=== PATIENT | female | born 1950 | race Caucasian/White ===

== ENCOUNTER 2017-06-15 08:08 | Day surgery (SDC) | payer MEDICARE, OTHER ==
[2017-06-12 13:44] VITALS: BMI 23.6
--- NOTE | 2017-06-15 08:19 | HP ---
HISTORY OF PRESENT ILLNESS: Ms. Winter is a very pleasant 66-year-old woman presenting for right hip pain that radiated down her right lower extremity just past the knee in the L4-L5 fashion. She has seen her orthopedist, who evaluated her hip and does not feel it is the problem. She has an MRI and flexion, extension views from the [facility] reveal an unstable grade I slip at L4-L5 with ass ociated large central disk herniation, posterior synovial cyst, and facet hypertrophy resulting in se inés foraminal and central canal stenosis. I feel that this fits well with her symptom presentation. She has had one injection with Dr. Morales, but does not feel and is here for surgical disc ussion. PAST MEDICAL HISTORY: Seasonal allergies, anemia, asthma, arthritis, both osteoarthritis, and rheuma toid. CURRENT MEDICATIONS: Include Leflunomide, prednisone, Celebrex, and colchicine. ALLERGIES: No known drug allergies. PHYSICAL EXAMINATION: Patient is alert and oriented x3. Gait is severely antalgic. She does have a boot on for previous foot surgery that was done recently. ASSESSMENT: Lumbar radiculopathy and spinal stenosis. PLAN: Dr. Walters met with the patient, reviewed imaging, and advocated for an L4-L5 fusion. He expla ined to the patient the risks, benefits, and alternatives to the procedure. The patient expressed un derstanding and would like to move forward with surgery as discussed. I do believe, the patient is m entally competent and capable of making medical decisions for herself. We will move forward with citlalli corral as planned. Dheeraj Ruiz PA-C dictating for Dr. Walters.
[2017-06-15] MEDS ORDERED: CEFAZOLIN/Water 2 GM/20 ML SYRINGE ONE ×3 (08:30→16:15)
[2017-06-15] MEDS ORDERED: Bupivacaine HCl 0.5%/Epinephrine 1:200,000/PF 30 ml Vial ONE (10:14)
[2017-06-15] MEDS ORDERED: Midazolam HCl 2 mg/2 ml Vial ONE (10:41)
[2017-06-15] MEDS ORDERED: Fentanyl 250 MCG/5 ML VIAL ONE (10:45)
[2017-06-15] MEDS ORDERED: Clindamycin/D5W 900 mg/50 ml Premix Bag ONE (11:13)
[2017-06-15] MEDS ORDERED: Levofloxacin 500 mg/D5W 100 ml Premix Bag ONE (11:13)
[2017-06-15] MEDS ORDERED: Fentanyl 100 MCG/2 ML VIAL ONE ×3 (13:15→13:58)
[2017-06-15] MEDS ORDERED: Promethazine HCl 25 MG/ML VIAL IM/IV PRN (13:26)
[2017-06-15] MEDS ORDERED: Ondansetron HCl/PF 4 MG/2 ML Vial IVP PRN (13:26)
[2017-06-15] MEDS ORDERED: HYDROmorphone 2 MG/ML VIAL SLOW IVP PRN (13:26)
[2017-06-15] MEDS ORDERED: HYDROmorphone 0.5 MG/0.5 ML SYRINGE ONE ×2 (14:09→14:24)
--- NOTE | 2017-06-15 15:08 | OP ---
DATE OF PROCEDURE: 06/15/2017 SURGEON: Jake Walters M.D. [employer] ARCHITECT: Cabrera Ruiz PA-C. INDICATION: Pain. PREOPERATIVE DIAGNOSES: Lumbar spondylolisthesis with associated lumbar spinal stenosis with lumbar radiculopathy. PROCEDURES: L4-L5 decompression, bilateral L4-5 facetectomies, bilateral L4-5 posterolateral instrum ented fusion, placement of allograft, placement of autograft. ANESTHESIA: General. PROCEDURE IN DETAIL: The patient was brought into the operating room and placed under general anesth esia. She was flipped from a supine to prone position on the operating room table. A linear incisio n was planned over the L4-L5 segment. After prepping and draping and after an appropriate operative pause, the incision was created. The soft tissues were swept away from midline. A self-retaining re tractor was placed in the wound for optimal exposure. After confirming the appropriate level, C-arm fluoroscopy and Adson rongeur as well as 2, 3 and 4 mm Kerrisons as well as a high-speed cutting dril l bit were used to perform a complete laminectomy of L4, which included the superior aspect of L5. T he medial half of the facet joints were removed bilaterally. A synovial cyst which had eroded throug h the lamina was identified and subsequently removed. It was originated in the lateral recesses on t he right, probably from the L4 joint. This was removed. The lateral recesses as well as central can al in the end were well decompressed. The L4 and L5 pedicles were identified and palpated. With the aid of C-arm fluoroscopy, pedicle screws were placed bilaterally at L4 and L5. An intraoperative 3- D CT scan was performed which revealed excellent placement of hardware. Rods were placed across the screw heads and final tightened with set screws. Allograft and autograft material was then placed wi thin the lateral confines of the instrumentation construct. The wound was irrigated. Hemostasis was maintained throughout. The wound was then closed in anatomic layers and a pressure dressing was delmy lied. There were no known procedural complications.
[2017-06-15] MEDS ORDERED: Morphine 4 MG/ML VIAL ONE (15:33)
[2017-06-15] MEDS ORDERED: Ondansetron HCl/PF 4 MG/2 ML Vial ONE (16:01)
[2017-06-15] MEDS ORDERED: Glycopyrrolate 0.2 MG/ML 5 ML SYRINGE ONE (16:01)
[2017-06-15] MEDS ORDERED: PROPOFOL 200 MG/20 ML VIAL ONE (16:01)
[2017-06-15] MEDS ORDERED: Lidocaine 1% PF 5 ML VIAL ONE (16:01)
[2017-06-15] MEDS ORDERED: PHENYLEPHRINE-NS 100 MCG/ML 10 ML SYRINGE ONE (16:01)
[2017-06-15] MEDS ORDERED: Dexamethasone 20 MG/5 ML VIAL ONE (16:01)
[2017-06-15] MEDS ORDERED: HYDROcodone/Acetaminophen 5/325 mg Tablet ONE (16:28)
== END 2017-06-15 17:25 | disposition home or self-care (01) ==
LOC: SDC 08:08
PROVIDERS: ATTEND Neurological Surgery
PROC: 0SG0071 Fusion of Lumbar Vertebral Joint with Autologous Tissue Substitute, Posterior Approach, Posterior Column, Open Approach (ICD-10-PCS; principal; 2017-06-15)
DX: M43.16 Spondylolisthesis, lumbar region (principal); M48.061 Spinal stenosis, lumbar region without neurogenic claudication; M54.16 Radiculopathy, lumbar region; Z88.0 Allergy status to penicillin; Z88.7 Allergy status to serum and vaccine; Z88.8 Allergy status to other drugs, medicaments and biological substances; Z98.890 Other specified postprocedural states
CPT/HCPCS: 36416; 76001; 96374; C1713; J0670; J1100; J1170; J1956; J2001; J2250; J2270; J2405; J2704; J3010; J3490

== ENCOUNTER 2017-11-17 10:25 | Outpatient (CLI) | payer MEDICARE, OTHER ==
--- NOTE | 2017-11-17 12:08 | RAD ---
LUMBAR SPINE SERIES TWO VIEWS: HISTORY: Follow up from surgery. FINDINGS: Bilateral pedicle screws are seen at the L4-L5 level. There is severe disk narrowing at L4-L5 and at L5-S1. Marked spondylolisthesis of L4 and L5 of approximately 13 mm is noted. Pedicles appear inta ct. Laminectomy changes are seen at L4-L5. IMPRESSION: Postoperative changes of the spine. POS: JERARDO
== END 2017-11-17 10:26 | disposition home or self-care (01) ==
LOC: TBSIIMAG 10:25
PROVIDERS: ATTEND Neurological Surgery
DX: M54.16 Radiculopathy, lumbar region (principal); Z98.890 Other specified postprocedural states
CPT/HCPCS: 72100

== ENCOUNTER 2018-02-05 10:32 | Outpatient (CLI) | payer MEDICARE, OTHER | END 2018-02-05 10:33 | disposition home or self-care (01) | LOC: BICMAMMO 10:32 | PROVIDERS: ATTEND Internal Medicine | DX: Z12.31 Encounter for screening mammogram for malignant neoplasm of breast (principal) | CPT/HCPCS: 77063; 77067 ==

== ENCOUNTER 2018-10-09 17:33 | Inpatient (IN) | payer MEDICARE, OTHER ==
[2018-10-09 20:15] LABS: #Eosinphils 0.2 thou/uL (0.0-0.7); #Lymphocytes 1.2 thou/uL (1.20-3.40); #Monocytes 0.9 thou/uL (0.11-0.59); #Neutrophils 6.4 thou/uL (1.40-6.50); %Basophils 0.5 % (0.0-1.0); %Eosinophils 2.4 % (0.0-10.0); %Lymphocytes 13.6 % (21.0-51.0); %Monocytes 10.1 % (0.0-10.0); %Neutrophils 73.5 % (42.0-75.0); Hemoglobin 10.2 g/dL (12.0-16.0); Mean Corpuscular Hemoglobin 30.7 pg (27.0-31.0); Mean Platelet Volume 6.6 fL (7.4-10.4); Platelet Count 536 thou/uL (130-400); RBC Distribution Width 13.7 % (11.5-14.5); Red Blood Cell (RBC) Count 3.31 mill/uL (4.20-5.40); White Blood Cell (WBC) Count 8.7 thou/uL (4.8-10.8)
[2018-10-09] MEDS ORDERED: Morphine 4 MG/ML VIAL ONE (20:16)
[2018-10-09] MEDS ORDERED: MEROPENEM 1 GM/50 ML BAG IVPB SCH (20:30)
[2018-10-09 20:40] LABS: ALT (SGPT) 32 U/L (8-55); AST (SGOT) 22 U/L (5-34); Albumin 3.6 g/dL (3.4-4.8); Alkaline Phosphatase 160 U/L (40-150); Anion Gap 13 mmol/L (10-20); BUN (Urea Nitrogen) 15 mg/dL (9.8-20.1); Bilirubin, Total 0.2 mg/dL (0.2-1.2); Calc. Creatinine Clearance 0 mL/min (70-130); Calcium 9.5 mg/dL (7.8-10.44); Carbon Dioxide 25 mmol/L (23-31); Chloride 106 mmol/L (98-107); Estimated GFR-MDRD 80; Globulin 3.2 g/dL (2.4-3.5); Glucose 98 mg/dL (80-115); Potassium 4.1 mmol/L (3.5-5.1); Protein, Total 6.8 g/dL (6.0-8.3); Sodium 140 mmol/L (136-145)
[2018-10-09] MEDS ORDERED: Fentanyl 100 MCG/2 ML VIAL ONE ×2 (20:41→21:08)
[2018-10-09] MEDS ORDERED: Ketorolac Tromethamine 30 MG/ML VIAL ONE (21:08)
[2018-10-09] MEDS ORDERED: Ondansetron PF 4 MG/2 ML Vial IVP PRN (21:27)
[2018-10-09] MEDS ORDERED: Ondansetron ODT 4 MG TAB SL PRN (21:27)
[2018-10-09 21:53] VITALS: BMI 23.3
[2018-10-09] MEDS: Morphine 4 MG/ML VIAL SLOW IVP PRN (22:43)
--- NOTE | 2018-10-09 23:10 | CON ---
DATE OF CONSULTATION: HISTORY OF PRESENT ILLNESS: A 68-year-old female, 2 weeks status post implant placement of left mandible, multiple failed incision and drainage and refractive to oral clindamycin. The patient has had dental implants removed along with incision and drainage intraorally with no improvement of left facial swelling. The patient presented today with left buccal vestibular and left submandibular space infection concerned for left mandibular osteomyelitis. The patient denies all constitutional symptoms. The patient was advised to present to the emergency department for admission of IV antibiotics with incision and drainage to include peripheral ostectomy and debridement of the mandible in an operating room. PHYSICAL EXAMINATION: VITAL SIGNS: Stable. The patient is afebrile. GENERAL: A and O x3. Well-nourished, well-developed, in no acute distress. NEUROLOGIC: Cranial nerves 2 through 12 grossly intact, although the patient does complain of left V3 paresthesia. HEAD, EARS, EYES, NOSE, THROAT: Normocephalic, atraumatic. Pupils are equal, round, and reactive to light and accommodation. Nose is patent, midline. Throat is supple. MAXILLOFACIAL: The patient has left mandibular induration of left mandible that has extended past inferior border. Trachea is midline. No concern for airway loss at this point. Intraorally, left buccal vestibular induration with areas of fluctuance. Purulence appreciated upon palpation of left buccal vestibule. Floor of mouth non-elevated. Uvula is midline. No peritonsillar swelling. LABORATORY DATA: CBC pending. IMAGING: No CT imaging is needed at this time. IMPRESSION: Left mandibular/submandibular myofascial space infection concerned for osteomyelitis, requires IV antibiotics and surgical intervention. PLAN: Admit to hospitalist for IV antibiotics. Start 1 g meropenum q.8 hours until further advice. We will consult Infectious Disease, Dr. Erickson for recommendations. Keep n.p.o. after midnight. Plan for operating room on 10/10/2018 at 10 a.m. The patient will likely be inhouse for 2 or 3 days until resolvement of left submandibular space infection. The patient will also be sent to Interventional Radiology for PICC line placement prior to discharge. Job ID: [id number]
[2018-10-10] MEDS ORDERED: Morphine 4 MG/ML VIAL SLOW IVP SCH (00:30)
[2018-10-10] MEDS: Ketorolac Tromethamine 30 MG/ML VIAL IVP PRN ×3 (00:33→17:44)
[2018-10-10] MEDS: HYDROcodone/Acetaminophen 7.5/325 mg Tablet PO PRN ×2 (00:34→04:37)
[2018-10-10] MEDS: Morphine 4 MG/ML VIAL SLOW IVP PRN ×3 (02:41→06:41)
[2018-10-10] MEDS: MEROPENEM 1 GM/50 ML 1 GM in Premix Bag 1 BAG IVPB SCH ×3 (05:31→20:30)
[2018-10-10] MEDS ORDERED: Non-Formulary Item 1 EACH (Levalbuterol Tartrate [Xopenex Hfa Inhaler] 1 PUFF) INH PRN (08:59)
[2018-10-10] MEDS ORDERED: Non-Formulary Item 1 EACH (Sumatriptan Succinate [Imitrex] 100 MG) PO PRN (08:59)
[2018-10-10] MEDS ORDERED: ALPRAZolam 0.5 MG TAB PO PRN (08:59)
[2018-10-10] MEDS ORDERED: PREDNISONE 5 MG PO SCH (09:00)
[2018-10-10] MEDS ORDERED: Bisacodyl 5 MG TAB PO PRN (09:02)
[2018-10-10] MEDS ORDERED: Senokot S 8.6-50 MG TAB PO PRN (09:02)
[2018-10-10] MEDS ORDERED: hydrOXYzine 25 MG TAB PO PRN (09:21)
[2018-10-10] MEDS ORDERED: SUMAtriptan Succinate 50 MG TAB PO PRN (09:26)
[2018-10-10] MEDS ORDERED: PROVENTIL INHALER 6.7 G (200 INHALATIONS) INH PRN (09:27)
[2018-10-10] MEDS ORDERED: Morphine 4 MG/ML VIAL ONE (09:54)
[2018-10-10] MEDS ORDERED: Chlorhexidine Gluconate 15 ML UDCUP SSP SCH (10:00)
[2018-10-10] MEDS ORDERED: Dexamethasone 4 mg/ml Vial IM SCH (10:00)
[2018-10-10] MEDS ORDERED: Oxymetazoline HCl 0.05% ( 15 ML ) ONE ×2 (10:30→10:39)
[2018-10-10] MEDS ORDERED: Lidocaine 2% w/Epinephrine 1:200K 20 ML VIAL ONE (10:33)
[2018-10-10] MEDS ORDERED: Chlorhexidine Gluconate 15 ML UDCUP SSP ONE (10:33)
[2018-10-10] MEDS ORDERED: Fentanyl 100 MCG/2 ML VIAL ONE ×2 (10:39→13:20)
[2018-10-10] MEDS ORDERED: Promethazine HCl 25 MG/ML VIAL SLOW IVP PRN (12:27)
[2018-10-10] MEDS ORDERED: HYDROmorphone 2 MG/ML VIAL SLOW IVP PRN (12:27)
[2018-10-10] MEDS ORDERED: Promethazine HCl 25 MG/ML VIAL IM PRN (12:27)
[2018-10-10] MEDS ORDERED: HYDROmorphone 2 MG/ML VIAL ONE (13:00)
[2018-10-10] MEDS ORDERED: Promethazine HCl 25 MG/ML VIAL ONE (13:01)
[2018-10-10] MEDS ORDERED: Midazolam HCl 2 mg/2 ml Vial ONE (13:06)
[2018-10-10] MEDS: Fentanyl 100 MCG/2 ML VIAL SLOW IVP PRN ×2 (15:04→20:28)
[2018-10-10] MEDS: Gabapentin 300 MG CAP PO SCH ×3 (15:12→20:30)
[2018-10-10] MEDS: HYDROcodone/Acetaminophen 10/325 mg Tablet PO PRN ×2 (15:23→20:27)
[2018-10-10] MEDS: Colchicine 0.6 MG TAB PO SCH ×2 (15:23→20:27)
[2018-10-10] MEDS: predniSONE 5 MG TAB PO SCH (15:23)
[2018-10-10] MEDS: Hydroxychloroquine Sulfate 200 MG TAB PO SCH ×2 (15:23→20:27)
[2018-10-10] MEDS: buPROPion HCl 100 MG TAB PO SCH (15:23)
--- NOTE | 2018-10-10 16:36 | HP ---
CHIEF COMPLAINT: Left jaw infection with osteomyelitis, who has failed outpatient medical management. HISTORY OF PRESENT ILLNESS: Ms. Winter is a very pleasant 68-year-old white female with past medical history of recent implant of the left mandible roughly 2 weeks ago, multiple incision and drainage of the left mandible, and failure of oral antibiotic therapy with clindamycin, who was brought in for surgical debridement of osteomyelitis in the left jaw. Dr. Glen Ames has brought the patient in for further surgical management. The patient was started on IV antibiotics, Infectious Disease consultation requested for further recommendations. The patient was taken to the operating room on 10/10/2018, please see full operative report for details. The patient tolerated the procedure well without intraoperative complications. I find the patient postoperatively on the surgical recovery floor, resting in bed. The patient has gauze over the left jaw, which is overtly clean , however, there is some dry blood in the deeper layers. The patient does have uncontrolled pain, and states that the oral medications have not helped her for pain. We will add IV pain medications to control breakthrough pain. The patient with past medical history of rheumatoid arthritis on immunosuppressive therapy with disease-modifying drugs leflunomide and hydroxychloroquine. The patient's other past medical history of neuropathic pain, GERD, depression, and migraine-type headaches. REVIEW OF SYSTEMS: A 10-point review of systems was conducted and found to be negative aside from 1 mentioned in history of present illness. MEDICATIONS: Please see full medication list for details. 1. Hydroxyzine. 2. Clonidine. 3. Wellbutrin. 4. Triazolam. 5. Sumatriptan. 6. Paroxetine. 7. Xopenex. 8. Leflunomide. 9. Lansoprazole. 10. Hydroxychloroquine. 11. [place]. 12. Gabapentin. 13. Colchicine. 14. Celecoxib. 15. Xanax. 16. Prednisone. ALLERGIES: PENICILLINS, TETANUS VACCINE, TOXOIDS, and Ketamine PHYSICAL EXAMINATION: VITAL SIGNS: Temperature 98.1, pulse 88, respirations 14, O2 saturation 98 on 2 L nasal cannula, and blood pressure 147/75. GENERAL: The patient is a moderate, acute distress, visibly uncomfortable from pain of recent surgery. HEENT: The patient does have old healed scar between her eyebrows, the patient has left mandible dressing, which is primarily clean, however, there is some dry blood in the deeper layers, the patient has gauze in the oral cavity that is blood soaked. CARDIAC: Regular rate and rhythm. No murmurs, rubs, or gallops. LUNGS: Clear to auscultation bilaterally. There is no significant wheezing, rales, or rhonchi. ABDOMEN: Soft, nontender, and nondistended. EXTREMITIES: Negative for edema or gross deformities. NEUROLOGIC: The patient is alert and oriented x3 with fair insight into her clinical condition, no focal neurologic deficits, sensation grossly intact. LABORATORY DATA: WBC 8.7, RBC 3.3, hemoglobin 10.2, hematocrit 31.8, MCV 96, and platelets 536. Sodium 140, potassium 4.1, chloride 106, carbon dioxide 25, anion gap 13, blood urea nitrogen 15, and creatinine 0.73. Estimated GFR of 80, glucose 98, lactic acid 0.8, calcium 9.5, total bilirubin 0.2, AST 22, ALT 32, alkaline phosphatase 160, serum total protein 6.8, albumin 3.6, and globulin 3.2. ASSESSMENT: 1. Acute osteomyelitis of the left mandible, who has failed outpatient medical management 2. Complicated left jaw dental implants that have failed outpatient medical management. 3. Jaw pain. 4. Rheumatoid arthritis, on immunosuppressive therapy with disease modifying drugs. 5. Neuropathic pain. 6. Depression. 7. Migraine headaches. 8. Gastroesophageal reflux disease. PLAN: 1. Admit to medical/ surgical unit. 2. Surgery following, recommendations appreciated. 3. Infectious Disease consultation, recommendations appreciated. 4. Broad-spectrum antibiotic, IV coverage with meropenem, we will deescalate to culture and sensitivity as able. 5. The patient will likely require PICC line for extended coarse of IV antibiotics. 6. Perioperative care. 7. IV and oral pain control this evening as severe postoperative pain is not controlled at this time. 8. Resume home medication as able. 9. GI and DVT prophylaxis. Thank you Dr Ames for allowing us to participate in the care of this patient. Job ID: [id number] [facility]
[2018-10-10] MEDS ORDERED: PROPOFOL 200 MG/20 ML VIAL ONE (16:47)
[2018-10-10] MEDS ORDERED: Lidocaine 1% PF 5 ML VIAL ONE (16:47)
[2018-10-10] MEDS ORDERED: Rocuronium Bromide 10 MG/ML (10ML VIAL) ONE (16:47)
[2018-10-10] MEDS ORDERED: Dexamethasone 20 MG/5 ML VIAL ONE (16:47)
[2018-10-10] MEDS ORDERED: Ondansetron PF 4 MG/2 ML Vial ONE (16:47)
[2018-10-10] MEDS ORDERED: Labetalol HCl 100 MG/20 ML VIAL ONE (16:47)
[2018-10-10] MEDS: Chlorhexidine Gluconate 15 ML UDCUP SSP SCH (20:27)
[2018-10-10] MEDS: PARoxetine 20 MG TAB PO SCH (20:27)
[2018-10-10] MEDS: Leflunomide 10 mg Tablet PO SCH (20:31)
--- NOTE | 2018-10-10 20:52 | PRG ---
DATE OF SERVICE: 10/10/2018 HISTORY OF PRESENT ILLNESS: A 68-year-old female status post incision and drainage of left submandibular space infection, buccal vestibular space infection and surgical peripheral ostectomy and debridement of left mandibular body secondary to osteomyelitis of the mandible. The patient has been transferred to the [facility]/ surgical floor. She is ambulating, micturating and accepting p.o. intake. Her pain is being controlled with IV and p.o. pain medication. She denies postop nausea and vomiting. Focused Exam: GENERAL: The patient is alert and oriented, no acute distress. MAXILLOFACIAL: Moderate left facial edema as expected, surgical mesh netting in place with 4x4 gauze along the left cervical region covering the Fatmata drain with serosanguinous discharge noted. Mild cresting of blood around naris. Oral: Left soft tissue surgical site well approximated with iodoform impregnated gauze with vancomycin noted through exit of posterior incision site. Hemostatic. IMAGING: None LABORATORY DATA: We will compare and contrast new CBC in a.m. IMPRESSION: Satisfactory postoperative course, modification of pain management through pain control. PLAN: 1. Maintain patient on IV antibiotics 1g meropenum q. 8 hours until further recommendations by Dr. Erickson with Infectious Disease. 2. Schedule for PICC with Interventional Radiology on Thursday or Thursday. 3. Pain control. We will transition to p.o. as tolerated. 4. Advanced to full liquids. 5. We will plan to leave Fatmata drain via cervical incision site until no purulence is identified. 6. We will remove intraoral iodoform gauze packing within 24 to 48 hours. 7. Plan to keep the patient inhouse 3-4 days until infection is under control. Job ID: [id number] [facility]
[2018-10-10] MEDS ORDERED: Prevnar 13-Val Conj/PF 0.5 ML SYRINGE IM ONE (21:00)
[2018-10-10] MEDS ORDERED: Non-Formulary Item 1 EACH (Lansoprazole [Prevacid] 30 MG) PO SCH (21:00)
--- NOTE | 2018-10-10 21:55 | CON ---
DATE OF CONSULTATION: 10/10/2018 REASON FOR CONSULTATION: Jaw osteomyelitis. HISTORY OF PRESENT ILLNESS: A 68-year-old with history of rheumatoid arthritis and herpes zoster many years ago associated with postherpetic neuralgia and chronic self excoriation in the frontal periorbital region, who underwent dental extractions in the left jaw and now has developed osteomyelitis and soft tissue inflammatory process, was admitted and underwent surgical debridement by Dr. Ames. The operative note is not available yet. The patient is awake. She has moderate pain at the site. No headaches. No visual symptoms. She has the sensitivity in the frontal area associated with her postherpetic neuralgia. No cough. No dyspnea or chest pain. No abdominal pain or diarrhea. No genitourinary symptoms. PAST MEDICAL HISTORY: Includes postherpetic neuralgia in the facial area, rheumatoid arthritis, vasculitis, asthma, pulmonary embolism. PAST SURGICAL HISTORY: Back surgeries, left knee surgery, cataract operation, x3, hysterectomy. SOCIAL HISTORY: Never smoker. Drinks occasionally. Lives in [place]. FAMILY HISTORY: Noncontributory. ALLERGIES: PENICILLIN. MEDICATIONS: 1. Prednisone. 2. Colcrys. 3. Paxil. 4. Wellbutrin. 5. [place]. 6. Plaquenil. 7. Celebrex. 8. Gabapentin. PHYSICAL EXAMINATION: VITAL SIGNS: Essentially normal. SKIN: Shows the area of self excoriation with scabbing across the nasal bridge upper segment and going towards the forehead, left side. This is a chronic problem that she has had for many years and is due to severe paresthesias associated with postherpetic neuralgia and self excoriation. She has the submandibular drain site with a Fatmata and she has a peripheral IV access. No lymphadenopathy. NECK: Supple. LUNGS: Symmetric. Clear breath sounds. HEART: S1 and S2. Regular rate. No S3 or S4. ABDOMEN: Soft. Not distended or tender. No ascites. No bladder distention. MUSCULOSKELETAL: No joint inflammatory activity. NEUROLOGIC: Nonfocal. Cognitive function appears to be intact. LABORATORY DATA: Chemistry; the only abnormal value was alkaline phosphatase of 160, and CBC with a white cell count 8.7, hemoglobin 10.2, platelets 536 with 72 % neutrophils. Microbiology with pending results. IMAGING: No current imaging available here in the hospital file. ASSESSMENT: 1. Chronic postherpetic neuralgia. 2. Dental extraction with complications including osteomyelitis of the left jaw and soft tissue infection. DISCUSSION: The patient has had a surgical debridement procedure and we will go ahead and wait for the culture results. Continue meropenem for now and monitor culture results and PICC line placement. Plan outpatient therapy, end date of therapy around November 21 with weekly labs. Discussed potential adverse reactions from the treatment including drug hypersensitivity reaction, diarrhea, kidney, liver, and bone marrow toxicity. The patient understood and agreed with management and recommendations. Job ID: [id number] [facility]
--- NOTE | 2018-10-11 02:21 | OP ---
DATE OF PROCEDURE: 10/10/2018 PREOPERATIVE DIAGNOSES: Left submandibular space infection, left buccal vestibular space infection, left acute mandibular osteomyelitis. POSTOPERATIVE DIAGNOSES: Left submandibular space infection, left buccal vestibular space infection, left mandibular acute osteomyelitis of mandibular body. PROCEDURES PERFORMED: 1. Incision and drainage of left buccal vestibular and submandibular space infection. 2. Intraoral peripheral ostectomy with debridement of the left mandible SURGEON: Dr. Glen Ames DDS, Oral Maxillofacial Surgeon CO-SURGEON: Dr. Isaias Torres DDS, , Oral and Maxillofacial surgeon. ESTIMATED BLOOD LOSS: Less than 25 mL. IV FLUIDS: 1200 mL of isotonic crystalloid. URINE OUTPUT: None, no Graham. FINDINGS: Intraoral exposure of 3-4 cm segment of mandibular body with soft tissue dehiscence, thick mucopurulent discharge noted within site. Left mandibular body marrow with granulomatous inflammatory tissue within body of mandible. Peripheral ostectomy performed along with curettage to remove necrotic bone down to healthy bleeding bone. SPECIMENS: Multiple hard tissue biopsies and cultures were sent to lab. COMPLICATIONS: None. DISPOSITION: PACU. HARDWARE: None. COMMENTS: No surgical or anesthetic complications. INDICATIONS FOR PROCEDURE: The patient initially presented to [facility] with complaints of refractive left mandibular swelling. The patient has a history of extraction and multiple implant placement of left mandible 2-1/2 weeks ago. She has then experienced left facial swelling to include intraoral infection. She had received multiple incision and drainage in the office along with a 10- day course of oral clindamycin 300 mg q.6 hours with no improvement. The patient presented to office today, she was noted to have a more progressive swelling that has progressed to the left submandibular space. At this point, concerned for airway compromise. The patient denies dysphagia, denies difficulty breathing, but due to location of infection, recommended to report to [facility] [facility] for admission for IV antibiotics, pain control, surgical incision and drainage along with peripheral ostectomy and debridement of the left mandible. Risks, benefits , alternatives and indications for procedure were discussed with the patient. She had the opportunity to ask questions and have them answered. She then elected to proceed with the recommended procedure. DESCRIPTION OF PROCEDURE: The patient was transferred to the operating room C and placed on the operating table in supine position. Standard monitors and preoxygenation were applied. The patient was noted to be stable and was induced into a state of general anesthesia via an intravenous route. The patient had ocular lubricant placed on the right eye. In the left eye, none was placed due to the patient wearing a protected contact. The patient's eyes were then protected by taping them shut with Transpore Tape. She was then intubated via nasal endotracheal tube of the right nares. After confirmation by the Anesthesia Team, it was properly positioned, it was secured by the surgical team. The patient was placed in a slight reverse Trendelenburg position. A Graham catheter was not placed. She was then prepped and draped in a standard sterile fashion. At this point, identifying the left submandibular space infection, staying 2 cm inferior to the inferior border of the mandible, made a 1.5 to 2 cm marking using the sterile marking pen and using 2% Lidocaine with 1:100,000 epinephrine, performed a subcutaneous infiltration for a total of 2 mL. We then turned our attention intraorally with a bite block and appropriate retractors in position, injected additional 6 mL of local anesthetic was placed in the left buccal vestibular, left mental and left inferior alveolar nerve block. Throat pack was placed. Peridex oral scrub was performed. Thick purulent discharge was noted to come from wound along with a 3 cm bony exposure secondary to a soft tissue dehiscence. We then used a 15 blade, we made a distal buccal incision along site #18, tissue was dehisced all the way from site #19, all the way to site #22. Then, using a 15 blade, made a sulcular incision from #22 to #21. Full thickness flap reflected, noted areas of periostitis along with poor moth-eaten granulomatous/inflammatory-appearing marrow space. We then took multiple biopsies and cultures of the hard tissue to send off for cultures and sensitivities along with confirmation of osteomyelitis. Next, using a curettage, the previous extraction /explant site noted marrow to be full of granulomatous tissue, which appeared to be infectious in nature. We then used a surgical handpiece with a round carbide bur and performed a peripheral ostectomy down to underlying bleeding bone. In addition to removing marrow infection, we elected to remove portion of lateral and medial cortex to minimize vertical intrabony defect. Inferior alveolar nerve was protected and intact throughout the procedure. At this point, also removed portion of lateral cortex along periostitis region. Copious sterile saline irrigation. Next, we turned our attention extraorally. Using a 15 blade, we made an incision now through skin, subcutaneous tissue down to and superficial to the superficial layer of the deep cervical fascia. Next, using blunt hemostats, we bluntly dissected to the inferior border staying lateral to the inferior border to make a through and through access. Next, using a Brunswick drain, secured a 4 cm Fat[address] drain in place using a 4-0 nylon suture. At this point, we elected to use packed iodoform gauze along with vancomycin impregnated paste on the gauze into the bony defect. We then elected to close site except for a 5 mm distal access where a portion of the packing was visible intraorally for removal in 24 to 48 hours. Multiple interrupted and vertical sutures were placed using 4-0 Vicryl suture. At this point, the procedure was deemed complete. Copious irrigation of all sites, 4 x 4 gauze along with a surgical netting were placed around the neck to allow for wound coverage. The patient was extubated without incident, transferred to the PACU with spontaneous respirations intact. Job ID: [id number] [facility]
[2018-10-11] MEDS: Fentanyl 100 MCG/2 ML VIAL SLOW IVP PRN ×3 (03:19→16:35)
[2018-10-11] MEDS: HYDROcodone/Acetaminophen 10/325 mg Tablet PO PRN ×5 (03:19→22:57)
[2018-10-11] MEDS: MEROPENEM 1 GM/50 ML 1 GM in Premix Bag 1 BAG IVPB SCH ×3 (03:30→21:02)
[2018-10-11 05:13] LABS: #Lymphocytes 0.8 thou/uL (1.20-3.40); #Monocytes 0.6 thou/uL (0.11-0.59); #Neutrophils 4.6 thou/uL (1.40-6.50); %Eosinophils 0.3 % (0.0-10.0); %Lymphocytes 12.8 % (21.0-51.0); %Monocytes 9.3 % (0.0-10.0); %Neutrophils 77.6 % (42.0-75.0); Hemoglobin 9.4 g/dL (12.0-16.0); Mean Corpuscular HGB CONC 31.8 g/dL (32.0-36.0); Mean Corpuscular Hemoglobin 29.8 pg (27.0-31.0); Mean Corpuscular Volume 93.8 fL (78.0-98.0); Mean Platelet Volume 6.5 fL (7.4-10.4); Platelet Count 569 thou/uL (130-400); RBC Distribution Width 13.6 % (11.5-14.5); Red Blood Cell (RBC) Count 3.14 mill/uL (4.20-5.40); White Blood Cell (WBC) Count 5.9 thou/uL (4.8-10.8)
[2018-10-11 05:16] LABS: Anion Gap 14 mmol/L (10-20); BUN (Urea Nitrogen) 12 mg/dL (9.8-20.1); Calc. Creatinine Clearance 87 mL/min (70-130); Calcium 9.3 mg/dL (7.8-10.44); Carbon Dioxide 26 mmol/L (23-31); Chloride 107 mmol/L (98-107); Estimated GFR-MDRD Greater than 90; Glucose 109 mg/dL (80-115); Sodium 143 mmol/L (136-145)
[2018-10-11] MEDS: Ketorolac Tromethamine 30 MG/ML VIAL IVP PRN ×3 (05:26→18:31)
[2018-10-11] MEDS: buPROPion HCl 100 MG TAB PO SCH (08:09)
[2018-10-11] MEDS: Chlorhexidine Gluconate 15 ML UDCUP SSP SCH ×2 (08:09→20:59)
[2018-10-11] MEDS: predniSONE 5 MG TAB PO SCH (08:09)
[2018-10-11] MEDS: Colchicine 0.6 MG TAB PO SCH ×2 (08:09→20:58)
[2018-10-11] MEDS: Hydroxychloroquine Sulfate 200 MG TAB PO SCH ×2 (08:09→20:59)
[2018-10-11] MEDS: Gabapentin 300 MG CAP PO SCH ×3 (08:09→20:59)
--- NOTE | 2018-10-11 13:37 | PDOC.HOSPP ---
- Subjective Subjective: Patient seen and examined. States she slept well. Pain better controlled. Patient feels like swelling has gone down. Patient inquiring about culture data , I informed her that 48 hours is common and maybe even longer for anaerobes. Patient happy with plan of care. - Objective Vital Signs & Weight: Vital Signs (12 hours) Temp Pulse Resp BP Pulse Ox 10/11/18 08:10 97 10/11/18 07:15 97.6 F 102 H 16 167/81 H 97 10/11/18 03:14 98.9 F 97 16 165/89 H 96 Weight Weight 145 lb I&O: 10/10/18 10/11/18 10/12/18 06:59 06:59 06:59 Intake Total 270 Balance 270 Result Diagrams: 10/11/18 04:02 10/11/18 04:02 ROS - Medication Medications: Active Medications Generic Name Dose Route Start Last Admin Trade Name Freq PRN Reason Stop Dose Admin Hydrocodone Bitart/Acetaminophen 1 tab 10/10/18 15:06 10/11/18 08:10 [place] 10/325 PO 1 tab Q4H PRN Administration Moderate to Severe Pain (6-10) Bupropion HCl 300 mg 10/10/18 09:00 10/11/18 08:09 Wellbutrin PO 300 mg QAM LAKE Administration Chlorhexidine Gluconate 15 ml 10/10/18 21:00 10/11/18 08:09 Chlorhexidine Gluconate SSP 15 ml BID LAKE Administration Colchicine 0.6 mg 10/10/18 09:00 10/11/18 08:09 Colchicine PO 0.6 mg BID LAKE Administration Fentanyl 12.5 mcg 10/10/18 14:46 10/11/18 10:06 Sublimaze SLOW IVP 12.5 mcg Q2H PRN Administration Moderate to Severe Pain (6-10) Gabapentin 300 mg 10/10/18 09:00 10/11/18 08:09 Neurontin PO 300 mg TID LAKE Administration Hydroxychloroquine Sulfate 200 mg 10/10/18 09:00 10/11/18 08:09 Plaquenil PO 200 mg BID LAKE Administration Meropenem 1 gm/ Device 50 mls @ 100 mls/hr 10/10/18 04:30 10/11/18 11:51 IVPB 50 mls 0430,1230,2030 LAKE Administration Ketorolac Tromethamine 15 mg 10/10/18 10:15 10/11/18 11:51 Toradol IVP 10/15/18 10:16 15 mg Q6H PRN Administration Mild-Moderate Pain (1-5) Leflunomide 20 mg 10/10/18 21:00 10/10/18 20:31 Arava PO 20 mg HS LAKE Administration Pantoprazole Sodium 40 mg 10/10/18 21:00 10/10/18 20:28 Protonix PO 40 mg HS LAKE Administration Paroxetine HCl 40 mg 10/10/18 21:00 10/10/18 20:27 Paxil PO 40 mg HS LAKE Administration Prednisone 5 mg 10/10/18 09:00 10/11/18 08:09 Prednisone PO 5 mg QAM LAKE Administration Sodium Chloride 10 ml 10/10/18 21:00 10/11/18 08:10 Flush - Normal Saline IVF 10 ml Q12HR LAKE Administration - Exam NAD, awake alert Eye: anicteric sclera ENT: moist mucosa Neck - other findings: Left lower mandible dressings in position, clean and dry Heart: RRR, no murmur, no gallops, no rubs Respiratory: CTAB, no wheezes, no rales, no ronchi Gastrointestinal: soft, non-tender, non-distended, normal bowel sounds Extremities: no edema Skin: normal turgor Neurological: CN's grossly intact, normal sensation to touch, no weakness, no focal deficits Musculoskeletal: normal tone, normal strength Psychiatric: normal affect, A&O x 3 Hosp A/P (1) Osteomyelitis Code(s): M86.9 - OSTEOMYELITIS, UNSPECIFIED Status: Acute (2) Jaw pain Code(s): R68.84 - JAW PAIN Status: Acute (3) Failure of outpatient treatment Code(s): Z78.9 - OTHER SPECIFIED HEALTH STATUS Status: Acute (4) Rheumatoid arthritis Code(s): M06.9 - RHEUMATOID ARTHRITIS, UNSPECIFIED Status: Acute - Plan Plan: Medical/ surgical floor Surgery following, recommendations appreciated ID following, recommendations appreciated Cultures - Final intra operative cultures pending Responding to current antibiotics Will need PICC Will likely require extended course of IV antibiotics Post operative care Pain control Continue home meds as able GI and DVT PPX
--- NOTE | 2018-10-11 13:46 | SPC ---
Ultrasound and Fluoroscopic guided left upper extremity PICC placement HISTORY: Patient needs long-term IV antibiotics FINDINGS: Informed consent obtained prior to the procedure. An appropriate access site was determined with ultrasound guidance. The area was then meticulously pr epped and draped in usual sterile fashion. Skin overlying the left basilic vein anesthetized with 1% buffered lidocaine. Utilizing direct sonogr aphic guidance, vascular access is obtained via the left basilic vein, and an 0.018in guidewire was advanced to the cavoatrial junction. Intravascular length is calculated at 40.5 cm, and the PICC is c ut accordingly. Needle is removed and replaced with a peel-away sheath. The PICC was advanced over the wire. Wire and peel-away sheath were removed. The tip of the catheter overlies the cavoatrial junction. The catheter was accessed and aspirated/flushed easily. Exposure data: 0 minutes of fluoroscopic time 54 mGy square centimeter FINDINGS: Technically successful placement of a 40.5 centimeter single lumen 5 [place] left upper extremity PICC line. IMPRESSION: Successful ultrasound guided placement of a left upper extremity PICC.
[2018-10-11] MEDS: PARoxetine 20 MG TAB PO SCH (20:58)
[2018-10-11] MEDS: Leflunomide 10 mg Tablet PO SCH (21:02)
[2018-10-12] MEDS: MEROPENEM 1 GM/50 ML 1 GM in Premix Bag 1 BAG IVPB SCH (04:10)
[2018-10-12] MEDS: HYDROcodone/Acetaminophen 10/325 mg Tablet PO PRN ×3 (04:10→13:49)
[2018-10-12 06:04] LABS: #Eosinphils 0.1 thou/uL (0.0-0.7); #Lymphocytes 1.5 thou/uL (1.20-3.40); #Monocytes 0.9 thou/uL (0.11-0.59); #Neutrophils 3.5 thou/uL (1.40-6.50); %Basophils 0.3 % (0.0-1.0); %Eosinophils 1.4 % (0.0-10.0); %Lymphocytes 25.2 % (21.0-51.0); %Monocytes 14.8 % (0.0-10.0); %Neutrophils 58.3 % (42.0-75.0); Mean Corpuscular HGB CONC 32.5 g/dL (32.0-36.0); Mean Corpuscular Hemoglobin 30.5 pg (27.0-31.0); Mean Corpuscular Volume 93.8 fL (78.0-98.0); Mean Platelet Volume 5.8 fL (7.4-10.4); Platelet Count 520 thou/uL (130-400); RBC Distribution Width 13.8 % (11.5-14.5); Red Blood Cell (RBC) Count 2.94 mill/uL (4.20-5.40)
[2018-10-12 06:23] LABS: Anion Gap 10 mmol/L (10-20); BUN (Urea Nitrogen) 9 mg/dL (9.8-20.1); Calc. Creatinine Clearance 89 mL/min (70-130); Calcium 8.6 mg/dL (7.8-10.44); Carbon Dioxide 28 mmol/L (23-31); Chloride 107 mmol/L (98-107); Estimated GFR-MDRD Greater than 90; Glucose 82 mg/dL (80-115); Potassium 3.3 mmol/L (3.5-5.1); Sodium 142 mmol/L (136-145)
--- NOTE | 2018-10-12 08:52 | PRG ---
DATE OF SERVICE: 10/12/2018 HISTORY OF PRESENT ILLNESS: A 68-year-old female two days status post left submandibular and buccal vestibular incision and drainage along with left mandibular peripheral ostectomy and debridement of mandible secondary to chronic osteomyelitis. The patient has had an unremarkable hospital course. Pain control has improved and titrating down to p.o. pain medication. No episodes of nausea and vomiting. The patient is ambulating and accepting oral intake. The patient was seen by Interventional Radiology yesterday for a left PICC placement for exterminator termite antibiotic therapy. PHYSICAL EXAMINATION: GENERAL: Alert and oriented x3, no acute distress. HEAD, EARS, EYES, NOSE, THROAT: Normocephalic and atraumatic. Pupils are equal, round, and reactive to light and accommodation. Nares are patent, midline. Throat is supple. Trachea midline. MAXILLOFACIAL: Resolving left submandibular facial swelling. Mild weakness of the marginal mandibular branch of the facial nerve improving. Minimal discharge from left submandibular incision. The dressings are intact and secured. ORAL: Occlusion is stable. The soft tissue and mucosa are well approximated. Vicryl sutures are intact. Site appears clean. No purulence or discharge appreciated. Iodoform gauze packing visualized along the distal buccal incision site. No floor of mouth swelling. Uvula midline. No peritonsillar swelling noted. IMAGING: None. LABORATORY DATA: White count 8.7 on the October 09, 5.9 on the October 11, and 6.0 on the October 12, trending in right direction, non-elevated. Platelet count 536 on the October 09, 569 on the October 11, and 520 on the October 12, possible acute phase reactant, but progressing in the right direction. Neutrophil count normalized. MICROBIOLOGY: Currently, no growth at 24 hours. Still pending 48-hour results. ASSESSMENT: Satisfactory postoperative course, improving and resolving left submandibular space infection along with left mandibular osteomyelitis. PLAN: 1. Plan to remove [place] drain today at lunch time. 2. Discuss with case management for discharge planning in addition to medication and instructions for infusion of IV antibiotics for postop care. 3. Advance to non-chew soft diet. 4. Advance to p.o. pain medication, hold discontinuing of IV pain medication to make sure the patient can tolerate at home medication. 5. We will follow the patient at [facility] [employer] as an outpatient. Job ID: [id number]
[2018-10-12] MEDS: Hydroxychloroquine Sulfate 200 MG TAB PO SCH (08:56)
[2018-10-12] MEDS: predniSONE 5 MG TAB PO SCH (08:56)
[2018-10-12] MEDS: Gabapentin 300 MG CAP PO SCH ×2 (08:56→13:49)
[2018-10-12] MEDS: Colchicine 0.6 MG TAB PO SCH (08:56)
[2018-10-12] MEDS: buPROPion HCl 100 MG TAB PO SCH (08:56)
[2018-10-12] MEDS: Chlorhexidine Gluconate 15 ML UDCUP SSP SCH (08:58)
[2018-10-12] MEDS: Ketorolac Tromethamine 30 MG/ML VIAL IVP PRN (09:51)
[2018-10-12] MEDS ORDERED: Ertapenem 1 GM in Sodium Chloride 0.9% 100 ML IVPB SCH (13:15)
[2018-10-12] MEDS ORDERED: Heparin 1,000 UNITS/ML VIAL ONE ×2 (14:00)
[2018-10-12 16:13] VITALS: BP 142/86; TEMP 98.5
--- NOTE | 2018-10-13 04:58 | DIS ---
DATE OF ADMISSION: 10/09/2018 DATE OF DISCHARGE: 10/12/2018 DISCHARGE DIAGNOSES: 1. Left submandibular space infection. 2. Left buccal vestibular space infection. 3. Left mandibular acute osteomyelitis of the mandibular body. 4. Failed outpatient medical management with oral antibiotics. 5. Recurrent left jaw infection with failed incision and drainage as an outpatient. 6. Left jaw pain. 7. Rheumatoid arthritis on immunosuppressive therapy with disease modifying drugs. 8. Depression. 9. Migraine headaches. 10. Gastroesophageal reflux disease. HOSPITAL COURSE: Ms. Winter is a very pleasant 68-year-old white female who roughly 2 weeks ago underwent dental implants, unfortunately implant has been unsuccessful and there has been multiple incision and drainage of the left mandible in addition to oral antibiotics which has failed thus far. The patient was not responding to outpatient therapy and she was brought in to the hospital for further surgical management. Surgery took the patient to the operating room on 10/10/2018, please see full operative report for details. The patient tolerated the procedure well without intraoperative complications. The surgery was successful with intraoperative cultures being taken and infected material being removed/debridement. The patient was placed on broad-spectrum IV antibiotics with good improvement of symptoms. Infectious Disease consultation was requested, please see full consultation note for details. The patient with expected postoperative pain was controlled on a combination of IV and oral medications. The patient was slowly advanced from a liquid diet as tolerated to a more regular diet. As the patient's hospital course progressed, her pain was controlled on oral regimen. The patient was recommended safe for discharge by all specialists on 10/12/2018. Insurance requiring the patient to receive one dose of ertapenem/Invanz in the inpatient setting prior to be approved, I helped to coordinate this medication administration with the pharmacist. The patient was discharged in stable condition on 10/12/2018. REASON FOR HOSPITALIZATION: Left jaw osteomyelitis who has failed outpatient medical management. SIGNIFICANT FINDINGS: Infected left jaw tissue seen on surgical specimens. PROCEDURES PERFORMED/TREATMENTS RENDERED: The patient was taken to the operating room on 10/10/2018, please see full operative report for details. The patient received IV antibiotics, IV fluids, and pain medication. CONDITION ON DISCHARGE: Stable. SPECIFIC INSTRUCTIONS FOR THE PATIENT AND FAMILY: 1. The patient is instructed to have IV antibiotics infused via home health care. 2. The patient is to follow up with Dr. Glen Ames in the outpatient clinic as directed. 3. The patient is to follow up with Dr. Sandeep Erickson in the outpatient clinic as directed. 4. The patient is to follow up with primary care physician in the outpatient clinic as directed. 5. The patient is to continue all home medications as directed. MEDICATIONS: Dr. Ames wishes the patient to have new medications; 1. Bacitracin ointment, apply to affected area as directed. 2. Peridex mouth rinse, rinse as directed. 3. [place] 7.5/325, x20 tablets. TIME SPENT: Greater than 35 minutes spent coordinating the care for this patient and discharge planning. Thank you Dr Ames for allowing us to participate in the care of this patient. Job ID: [id number] [facility]
== END 2018-10-12 16:35 | disposition home or self-care (01) | DRG 129 ==
LOC: ERS 17:33 → SURG A 20:15
PROVIDERS: ADMIT Hospitalist; ATTEND Hospitalist
PROC: 0NBV0ZZ Excision of Left Mandible, Open Approach (ICD-10-PCS; principal; 2018-10-10)
PROC: 0J910ZZ Drainage of Face Subcutaneous Tissue and Fascia, Open Approach (ICD-10-PCS; 2018-10-10)
PROC: 02HV33Z Insertion of Infusion Device into Superior Vena Cava, Percutaneous Approach (ICD-10-PCS; 2018-10-10)
PROC: B54NZZA Ultrasonography of Left Upper Extremity Veins, Guidance (ICD-10-PCS; 2018-10-11)
DX: M27.2 Inflammatory conditions of jaws (principal); B02.29 Other postherpetic nervous system involvement; M06.9 Rheumatoid arthritis, unspecified; F41.9 Anxiety disorder, unspecified; F32.9 Major depressive disorder, single episode, unspecified; D64.9 Anemia, unspecified; J45.909 Unspecified asthma, uncomplicated; G43.909 Migraine, unspecified, not intractable, without status migrainosus; Z86.711 Personal history of pulmonary embolism; Z90.710 Acquired absence of both cervix and uterus; Z88.7 Allergy status to serum and vaccine; Z88.0 Allergy status to penicillin; Z88.8 Allergy status to other drugs, medicaments and biological substances; Z91.040 Latex allergy status; Z79.52 Long term (current) use of systemic steroids; Z79.899 Other long term (current) drug therapy
CPT/HCPCS: 36415; 36569; 80048; 80053; 83605; 85025; 87040; 87070; 87205; 88307; 96365; 96375; 99214; C1751; G0463; J1100; J1170; J1335; J1644; J1885; J2001; J2185; J2250; J2270; J2405; J2550; J2704; J3010; J3370; J3490; J7512

== ENCOUNTER 2019-02-21 11:34 | Inpatient (IN) | payer MEDICARE, OTHER ==
--- NOTE | 2019-02-21 12:05 | RAD ---
Exam: Chest one view HISTORY:Pain Comparison: 02/17/2009 FINDINGS: Lungs: Bilateral patchy opacity of the lower lung zones, right greater than left. Cardiac silhouette: Normal size Pulmonary vessels: Normal Pleural Spaces: Clear Pneumothorax: None Osseous abnormalities: None of acuity. IMPRESSION: Patchy bibasilar densities, which may be on the basis of atypical pneumonia/pneumonitis, within the correct clinical context
[2019-02-21 12:19] LABS: Band 9 % (5-11); Lymphocytes 4 % (21-51); MDiff Complete? YES; Mean Corpuscular Hemoglobin 30.3 pg (27.0-31.0); Mean Corpuscular Volume 91.8 fL (78.0-98.0); Mean Platelet Volume 9.5 fL (7.4-10.4); Monocytes 3 % (0-10); Neutrophil 84 % (42-75); Platelet Count 244 thou/uL (130-400); RBC Distribution Width 14.2 % (11.5-14.5)
[2019-02-21 12:20] LABS: ALT (SGPT) 31 U/L (8-55); AST (SGOT) 51 U/L (5-34); Albumin 4.3 g/dL (3.4-4.8); Alkaline Phosphatase 120 U/L (40-110); Anion Gap 13 mmol/L (10-20); BUN (Urea Nitrogen) 13 mg/dL (9.8-20.1); Bilirubin, Total 0.8 mg/dL (0.2-1.2); CK (CPK) 86 U/L (29-168); Calc. Creatinine Clearance 0 mL/min (70-130); Calcium 9.7 mg/dL (7.8-10.44); Carbon Dioxide 24 mmol/L (23-31); Chloride 106 mmol/L (98-107); Estimated GFR-MDRD 69; Globulin 2.9 g/dL (2.4-3.5); Glucose 120 mg/dL (80-115); Lipase 22 U/L (8-78); Potassium 3.6 mmol/L (3.5-5.1); Protein, Total 7.2 g/dL (6.0-8.3); Sodium 139 mmol/L (136-145)
--- NOTE | 2019-02-21 12:45 | CT ---
CTA CHEST WITH CONTRAST AND 3D VOLUME RENDERING: CLINICAL INDICATION: Pain. COMPARISON: Reference made to preceding chest radiograph, same date. FINDINGS: Pulmonary embolus: There is generalized low contrast density of the pulmonary arteries, precluding re liable evaluation for detection of pulmonary emboli. However, no definite large central embolus is seen within the pulmonary trunk or proximal main pulmonary arteries. Thoracic aorta is non-aneurysmal. Pulmonary parenchymal consolidation: As discussed on preceding chest radiograph, there are bilateral parenchymal opacities, including areas of patchy consolidation and multifocal reticulonodular and groundglass opacification present, most pronounced within the inferior aspect of the right middle lob e, indicative of atypical pneumonia. Pleural effusion: None. Pneumothorax: None. Osseous structures: No acute process. Incidental right thyroid lobe hypodensity, incompletely assessed. Recommend followup with thyroid ult rasound. IMPRESSION: Limited evaluation for pulmonary embolus, as above. Redemonstration of parenchymal opacities, most notable within the inferior aspect of the right middle lobe, indicative of atypical pneumonia. Transcribed Date/Time: 02/21/2019 12:54 PM
[2019-02-21] MEDS ORDERED: Enoxaparin Sodium 60 MG/0.6 ML SYRINGE ONE (14:36)
[2019-02-21] MEDS ORDERED: Senokot S 8.6-50 MG TAB PO PRN (16:59)
[2019-02-21] MEDS ORDERED: Ondansetron PF 4 MG/2 ML Vial IVP PRN (16:59)
[2019-02-21] MEDS ORDERED: Guaifenesin DM 100-10/5 ML UDCUP PO PRN (16:59)
[2019-02-21] MEDS ORDERED: Acetaminophen 325 MG TAB PO PRN (16:59)
[2019-02-21] MEDS ORDERED: Albuterol Sulfate 2.5 mg/3 ml Neb NEB PRN (16:59)
[2019-02-21] MEDS ORDERED: Ondansetron ODT 4 MG TAB PO PRN (16:59)
[2019-02-21] MEDS ORDERED: Acetaminophen 650 MG Suppository PR PRN (16:59)
[2019-02-21 18:13] VITALS: BMI 22.9
[2019-02-21] MEDS: Sodium Chloride 0.9% 1,000 ML IV SCH (20:44)
[2019-02-21] MEDS: Famotidine 20 MG TAB PO SCH (20:45)
[2019-02-21] MEDS: cefTRIAXone\\ROCEPHIN 1 GM in Sodium Chloride 0.9% 100 ML IVPB SCH (20:45)
[2019-02-21] MEDS: Azithromycin 500 MG in Sodium Chloride 0.9% 250 ML 250 ML IVPB SCH (22:09)
[2019-02-22 04:50] LABS: #Eosinphils 0.1 thou/uL (0.0-0.7); #Lymphocytes 0.8 thou/uL (1.20-3.40); #Monocytes 0.9 thou/uL (0.11-0.59); #Neutrophils 10.6 thou/uL (1.40-6.50); %Basophils 0.2 % (0.0-1.0); %Eosinophils 0.9 % (0.0-10.0); %Lymphocytes 6.5 % (21.0-51.0); %Monocytes 7.1 % (0.0-10.0); %Neutrophils 85.2 % (42.0-75.0); Hemoglobin 11.4 g/dL (12.0-16.0); Mean Corpuscular HGB CONC 32.8 g/dL (32.0-36.0); Mean Corpuscular Volume 94.5 fL (78.0-98.0); Mean Platelet Volume 9.5 fL (7.4-10.4); Platelet Count 192 thou/uL (130-400); RBC Distribution Width 14.2 % (11.5-14.5); Red Blood Cell (RBC) Count 3.67 mill/uL (4.20-5.40); White Blood Cell (WBC) Count 12.5 thou/uL (4.8-10.8)
[2019-02-22 05:06] LABS: Anion Gap 10 mmol/L (10-20); BUN (Urea Nitrogen) 16 mg/dL (9.8-20.1); Calc. Creatinine Clearance 82 mL/min (70-130); Carbon Dioxide 25 mmol/L (23-31); Chloride 113 mmol/L (98-107); Estimated GFR-MDRD 89; Glucose 95 mg/dL (80-115); Potassium 3.6 mmol/L (3.5-5.1); Sodium 144 mmol/L (136-145)
--- NOTE | 2019-02-22 09:31 | PDOC.HOSPP ---
- Subjective Encounter Date: 02/22/19 Encounter Time: 11:00 Subjective: Patient with violent cough. Otherwise doing well. Chest pain with cough only. - Objective Vital Signs & Weight: Vital Signs (12 hours) Temp Pulse Resp BP Pulse Ox 02/22/19 07:45 98.3 F 108 H 20 108/59 L 98 02/22/19 06:24 88 16 98 02/22/19 04:25 98.9 F 96 20 109/59 L 96 02/22/19 01:16 91 16 97 02/21/19 23:00 98.6 F 94 15 113/72 100 Weight Weight 138 lb I&O: 02/21/19 02/22/19 02/23/19 06:59 06:59 06:59 Intake Total 1580 Output Total 500 Balance 1080 Result Diagrams: 02/22/19 04:31 02/22/19 04:31 Hospitalist ROS - Review of Systems Constitutional: denies: fever, chills Respiratory: reports: cough. denies: shortness of breath Cardiovascular: reports: chest pain. denies: palpitations, orthopnea Gastrointestinal: denies: nausea, vomiting, abdominal pain - Medication Medications: Active Medications Generic Name Dose Route Start Last Admin Trade Name Freq PRN Reason Stop Dose Admin Albuterol/Ipratropium 3 ml 02/21/19 19:00 02/22/19 06:24 Duoneb NEB 3 ml [id number] LAKE Administration Famotidine 20 mg 02/21/19 21:00 02/21/19 20:45 Pepcid PO 20 mg BID LAKE Administration Guaifenesin/Dextromethorphan 15 ml 02/21/19 16:59 02/22/19 00:17 Robitussin Dm PO 15 ml Q4H PRN Administration Cough Azithromycin 500 mg/ Sodium 250 mls @ 250 mls/hr 02/21/19 21:00 02/21/19 22: 09 Chloride IVPB 250 mls Q24HR LAKE Administration Ceftriaxone Sodium 1 gm/ 100 mls @ 200 mls/hr 02/21/19 20:00 02/21/19 20:45 Sodium Chloride IVPB 100 mls Q24HR LAKE Administration Sodium Chloride 1,000 mls @ 75 mls/hr 02/21/19 17:15 02/21/19 20:44 Normal Saline 0.9% IV 1,000 mls .[id number] LAKE Administration - Exam General Appearance: NAD Eye: anicteric sclera ENT: moist mucosa Heart: RRR, no murmur, no gallops, no rubs Respiratory - other findings: coarse breath sounds throughout, but good air movement Gastrointestinal: soft, non-tender, non-distended, normal bowel sounds Psychiatric: normal affect, normal behavior, A&O x 3 Hosp A/P (1) Pneumonia Code(s): J18.9 - PNEUMONIA, UNSPECIFIED ORGANISM Status: Acute Qualifiers: Laterality: bilateral (2) Sepsis Code(s): A41.9 - SEPSIS, UNSPECIFIED ORGANISM Status: Acute Plan: tachycardia and leukocytosis improved, lactic acid normal after IV fluids (3) Asthma Code(s): J45.909 - UNSPECIFIED ASTHMA, UNCOMPLICATED Status: Chronic Qualifiers: Asthma severity: mild Asthma persistence: intermittent (4) Hx of pulmonary embolus Code(s): Z86.711 - PERSONAL HISTORY OF PULMONARY EMBOLISM Status: Inactive Plan: Awaiting VQ scan results to rule out recurrence (5) Rheumatoid arthritis Code(s): M06.9 - RHEUMATOID ARTHRITIS, UNSPECIFIED Status: Chronic - Plan continue antibiotics, respiratory therapy, out of bed/ambulate VQ scan neg for PE. Patient with atypical pneumonia, needs one more day IV abx, likely home tomorrow
--- NOTE | 2019-02-22 09:34 | NM ---
Ventilation/perfusion lung scan: 02/22/2019 HISTORY: Right-sided chest pain, clinical concern for pulmonary embolism TECHNIQUE: Ventilation imaging obtained following the inhalation of 8.9 mCi xenon-133 gas by face mas k. Perfusion imaging obtained following intravenous demonstration of 6.5 mCi technetium 99m labeled MAA FINDINGS: The ventilation imaging demonstrates normal wash-in, equilibrium, and washout phase. The pe rfusion imaging demonstrates no discrete perfusion defect. IMPRESSION: Very low probability for pulmonary embolism-unremarkable examination.
[2019-02-22] MEDS: Sodium Chloride 0.9% 1,000 ML IV SCH ×2 (09:58→12:27)
[2019-02-22] MEDS: Enoxaparin Sodium 40 MG/0.4 ML SYRINGE SC SCH (09:59)
[2019-02-22] MEDS: Famotidine 20 MG TAB PO SCH ×2 (09:59→19:53)
[2019-02-22] MEDS ORDERED: Loperamide HCl 2 MG CAP PO PRN (19:13)
[2019-02-22] MEDS: cefTRIAXone\\ROCEPHIN 1 GM in Sodium Chloride 0.9% 100 ML IVPB SCH (19:50)
[2019-02-22] MEDS: Azithromycin 500 MG in Sodium Chloride 0.9% 250 ML 250 ML IVPB SCH (21:37)
[2019-02-23] MEDS: Sodium Chloride 0.9% 1,000 ML IV SCH (03:13)
[2019-02-23 08:38] VITALS: BP 131/62; TEMP 98.7
[2019-02-23] MEDS: Famotidine 20 MG TAB PO SCH (09:32)
[2019-02-23] MEDS: Enoxaparin Sodium 40 MG/0.4 ML SYRINGE SC SCH (09:32)
--- NOTE | 2019-02-23 12:08 | DIS ---
DATE OF ADMISSION: 02/21/2019 DATE OF DISCHARGE: 02/23/2019 PRIMARY CARE PHYSICIAN: Dr. Jake White. COLLECTIONS ASSOCIATE: Dr. Aníbal Cross located at [facility]. DISCHARGE DIAGNOSES: 1. Sepsis secondary to bilateral pneumonia. 2. Multifocal pneumonia in immunocompromised patient. 3. History of rheumatoid arthritis, on prednisone, Arava, and Plaquenil. 4. Leukocytosis, resolving. 5. Sinus tachycardia, likely secondary to sepsis, pneumonia, and albuterol nebulizers. 6. Asthma, not in exacerbation. 7. History of jaw osteomyelitis, recently completing two 6-week courses of IV antibiotics as finished in mid December 2018. DISCHARGE MEDICATIONS: See discharge medication reconciliation. Prescription for Levaquin 750 mg once daily tablets for 7 days with zero refills sent to pharmacy. Patient will hold Plaquenil and Arava until completion of antibiotics. DISCHARGE ACTIVITY: Maintain rest and hydration. Otherwise, up ad bean as tolerated. DISCHARGE DIET: Resume home diet. FOLLOWUP INSTRUCTIONS: Oral and written prescriptions sent to pharmacy. Hold Plaquenil and Arava for 1 week. Maintain adequate rest and hydration. Continue nebulized bronchodilators and as needed antitussive agents. PCP followup within 1 week. Monitor for recurrence of symptoms. Okay to continue prednisone and Celebrex. CONSULTANTS DURING HOSPITALIZATION COURSE: None. BRIEF HOSPITALIZATION COURSE: This is a 68-year-old female with past medical history of rheumatoid arthritis, on Plaquenil, Arava, prednisone, history of recent osteomyelitis as a child, completing two courses of 6 weeks of IV antibiotics, last in mid December of 2018, asthma who presents to [facility] ER after referred by primary care physician for complaints of feeling unwell for 3-4 days duration. In ER, she was noted to have a pulse of 150s and suggestive of sepsis secondary to bilateral pneumonia documented on CTA chest. CTA chest was negative for pulmonary embolism in the central vessels. Patient is admitted as inpatient status. She is continue antibiotics with Rocephin, Zithromax, IV fluids, nebulized bronchodilators, and as needed antitussive agents. D-dimer was equivocal. V/Q scan with low probability for PE. Patient's symptoms improved over the next several days. Blood cultures were no growth to date. The patient maintained ambulatory status that desaturation clinically felt improved. She was continued on Plaquenil and Arava during hospitalization course, but I have advised her to hold this for the next 1 week until completion of oral antibiotics which we prescribed. A prescription for Levaquin 750 mg p.o. once daily tablets for 7 days duration with no refills will be sent to pharmacy. The patient will continue prednisone and Celebrex. She should continue nebulized bronchodilators. Rest, hydration, and p.r.n. antitussive agents. She is to follow with primary care physician in 1 week to assure resolution of symptoms. We will require repeat imaging. She should monitor for recurrence or worsening of symptoms. She verbalizes full understanding of all discharge plan and instructions, was seen and evaluated and discharged today with a [id number] encounter, will be discharged home in stable condition. PHYSICAL EXAMINATION: VITAL SIGNS: On date of discharge; temperature 98.7, pulse 100-110 sinus tachycardia, blood pressure 131/62 to 137/90, oxygen saturation 96-98% on room air, respirations 18 nonlabored. GENERAL APPEARANCE: Elderly female who is awake, alert, oriented, coherent, lucid, not in any obvious distress, speaking in full complete sentences, nontoxic in appearance. HEENT: Normocephalic, atraumatic. No facial asymmetry. Mucous membranes are moist. NECK: Supple. CARDIOVASCULAR SYSTEM: S1, S2. Tachycardic. No harsh murmurs. No reproducible chest wall tenderness to palpation. LUNGS: Bilateral equal air entry on posterior auscultation. Symmetrical chest expansion. No wheezing or rales. Mild rhonchi to the right mid lung. ABDOMEN: Soft, nontender, nondistended. EXTREMITIES: No appreciable lower extremity edema. SKIN: Warm to touch without rash, pallor, abrasions or any evidence of nodules. Discharge time 35 minutes. Job ID: [id number]
--- NOTE | 2019-02-24 11:31 | HP ---
PRIMARY CARE PHYSICIAN: Dr. Jake White. CHIEF COMPLAINT: Cough and feeling bad. HISTORY OF PRESENT ILLNESS: This is a 68-year-old white female with a known history of mild asthma as well as rheumatoid arthritis, on immunosuppressive therapy. She reports that she developed a bronchitis infection about 3 weeks ago, had some antibiotics and a course of steroids that she finished over a week ago. She is now back down to her regular daily 5 mg of prednisone daily. Three days ago, she started developing cough and then got progressively more achy and just feeling bad over the next few days. She also developed pain in her right posterior chest with a deep inspiration and with coughing. This pain is sharp in nature. She went to her primary care doctor's office, where she had an EKG showing significant tachycardia. She does have a history of PE about 7 years ago that was treated with a year of anticoagulation, so she was sent over here for evaluation. In the ER, she had 2 L of fluid for tachycardia and got a dose of Lovenox. She had a CT angio done, which showed no obvious large PE. However, it was inadequate due to poor pulmonary vasculature opacification, so she is going to need further workup to rule out a recurrent PE. The patient is feeling a little bit better now after fluids in the emergency room. REVIEW OF SYSTEMS: CONSTITUTIONAL: She may have some mild low-grade temperatures, but nothing above 100. No chills. EYES: No double vision or blurred vision. ENT: No congestion, drainage, or sore throat. PULMONARY: See HPI. CARDIOVASCULAR: No palpitations or racing heart that she noticed. Chest pain as per HPI. GASTROINTESTINAL: No abdominal pain. No nausea or vomiting. No diarrhea or constipation. GENITOURINARY: No dysuria or hematuria. MUSCULOSKELETAL: No muscle aches or joint pains other than the right posterior chest pain. SKIN: No rashes or other lesions noted. NEUROLOGIC: No numbness, tingling, or focal weakness. PAST MEDICAL HISTORY: 1. Rheumatoid arthritis, on disease modifying drugs, leflunomide and hydroxychloroquine. 2. Asthma, not on any chronic medications for that. 3. Pulmonary embolism in 2010. 4. 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 5. 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 PAST SURGICAL HISTORY: 1. Left knee surgery. 2. Cataract surgery bilaterally. 3. section x3. 4. Hysterectomy. 5. Tonsillectomy. 6. Lens transfer in right eye. 7. Appendectomy. 8. Laparotomy. PAST PSYCHIATRIC HISTORY: Anxiety and depression. SOCIAL HISTORY: The patient denies tobacco or heavy alcohol use. She does drink socially. No illicit drug use. She is and lives at home with her . FAMILY HISTORY: The patient reports that her mother had rheumatoid arthritis. No other known family medical history. ALLERGIES: PENICILLIN. SHE HAD A LARGE RED SWOLLEN AREA OVER HER BUTTOCK, WHERE SHE HAD AN INJECTION OF PENICILLIN DONE GREATER THAN 30 YEARS AGO. NEVER HAD A RESPIRATORY OR GENERALIZED REACTION. MEDICATIONS: 1. Prednisone 5 mg daily. 2. Colchicine 0.6 mg two times a day. 3. Paxil 30 mg daily. 4. Wellbutrin 300 mg each morning. 5. [place] as needed for pain. 6. Plaquenil 100 mg twice a day. 7. Celebrex 100 mg twice a day. 8. Gabapentin 300 mg three times a day. 9. Leflunomide 20 mg at night. PHYSICAL EXAMINATION: VITAL SIGNS: Blood pressure 109/75, pulse now 110 down from 140 at presentation , respirations 20, O2 saturation 96% on room air. GENERAL: This is a well-developed white female, in no acute distress. HEENT: Pupils, decreased reactive on the left and there is also some scarring at the cornea. Pupil round and reactive on the right. Oropharynx is clear without lesions, erythema, or exudate. She does have mildly dry mucous membranes. NECK: Supple. No lymphadenopathy. No thyroid nodules or enlargement. No JVD. HEART: Regular rate and rhythm. No murmurs, rubs, or gallops. LUNGS: Clear to auscultation bilaterally. No wheezes, crackles, or rhonchi. No tenderness to palpation of the chest wall. ABDOMEN: Soft, nontender to palpation. Normoactive bowel sounds. No hepatosplenomegaly or other masses. EXTREMITIES: No clubbing, cyanosis, or edema. SKIN: No rashes or other lesions. NEUROLOGIC: Intact strength and sensation in all extremities. No facial droop. PSYCHIATRIC: Alert and oriented x3. Normal mood and affect. LABORATORY DATA: CBC with a white blood cell count of 18,000, 84% neutrophils, 9% bands. Coagulation profile with a D-dimer of 1.12. Complete metabolic panel is notable only for glucose of 120, AST of 51, and alkaline phosphatase 120, the rest is normal. Troponin is negative x1. IMAGING STUDIES: 1. CTA of the thorax, I did review the radiologist's report and it shows pulmonary parenchymal opacities notably in the inferior aspect of the right middle lobe indicative of atypical pneumonia, low contrast density of the pulmonary arteries for the CTA portion precluding reliable evaluation for detection of pulmonary emboli ; however, there is no large central pulmonary embolus seen in the pulmonary trunk or proximal main pulmonary arteries. 2. Chest x-ray, I did review the chest x-ray done in the emergency room along with the radiologist's report. It shows patchy bibasilar densities likely atypical pneumonia or pneumonitis. ASSESSMENT: 1. Bilateral patchy pneumonia, appears to be an atypical pneumonia. Start the patient on Rocephin and azithromycin. 2. Sepsis. The patient does meet sepsis criteria with significant tachycardia, initially improved with fluids and elevated white blood cell count. Of note, though she is on chronic steroids, she normally has a normal white blood cell count even when she had injection of her jaw, when she was admitted here few months ago so she may have a significant pulmonary infection at this time. We will check a lactic acid now that she has had significant fluid resuscitation. We will run IV fluids at 75 an hour for now and bolus as needed should her lactic acid remain elevated. 3. Asthma. We will give the patient DuoNeb 4 times a day and then as needed albuterol. I do not hear any wheezing on exam or any evidence of significant exacerbations at this time. 4. Rheumatoid arthritis. We will resume the patient's Plaquenil. 5. Gastrointestinal prophylaxis. We will put the patient on Pepcid twice a day. 6. Deep venous thrombosis prophylaxis. We will put the patient on Lovenox 40 mg subcu daily given the patient's history of pulmonary embolism and her current pleuritic sort of chest pain and tachycardia. I do think it is necessary to do a further rule out on her recurrent pulmonary embolism. We will get a V/Q scan of the lungs. 7. Code status: I did discuss with the patient. She is a full code. Should she be incapacitated, her medical decision maker will be her , Noman Winter. Job ID: [id number] [facility]
== END 2019-02-23 12:09 | disposition home or self-care (01) | DRG 871 ==
LOC: ERS 11:34 → 2SW 16:23 → OBSVTOIN 16:55
PROVIDERS: ADMIT Hospitalist; ATTEND Hospitalist
DX: A41.9 Sepsis, unspecified organism (principal); J18.9 Pneumonia, unspecified organism; M06.9 Rheumatoid arthritis, unspecified; D64.9 Anemia, unspecified; J45.20 Mild intermittent asthma, uncomplicated; Z86.711 Personal history of pulmonary embolism; Z90.710 Acquired absence of both cervix and uterus; Z90.49 Acquired absence of other specified parts of digestive tract; Z88.0 Allergy status to penicillin; Z88.7 Allergy status to serum and vaccine; Z91.040 Latex allergy status; Z79.52 Long term (current) use of systemic steroids; Z79.899 Other long term (current) drug therapy
CPT/HCPCS: 36415; 71045; 71275; 78582; 80048; 80053; 82550; 83605; 83690; 84484; 85025; 85379; 87040; 87324; 87449; 93005; 94640; 94760; 96360; 96361; 96372; A9540; A9558; J0456; J0696; J1650; J3490; J7050; J7611; J7620

== ENCOUNTER 2020-06-05 13:46 | Outpatient (CLI) | payer MEDICARE, OTHER ==
[2020-06-06 02:03] LABS: SARS-CoV-2 PCR by NAA Not Detected (NotDetected)
== END 2020-06-05 13:47 | disposition home or self-care (01) ==
LOC: LABBT 13:46
PROVIDERS: ATTEND Neurological Surgery
DX: Z01.812 Encounter for preprocedural laboratory examination (principal); M48.061 Spinal stenosis, lumbar region without neurogenic claudication; Z20.822 Contact with and (suspected) exposure to COVID-19
CPT/HCPCS: U0003; U0005; 87635

== ENCOUNTER 2020-06-08 05:53 | Day surgery (SDC) | payer MEDICARE, OTHER ==
[2020-06-07 11:26] VITALS: BMI 23.3
[2020-06-08] MEDS ORDERED: Fentanyl 100 MCG/2 ML VIAL ONE ×5 (06:58→11:09)
[2020-06-08] MEDS ORDERED: Thrombin 5000 UNITS/5 ML VIAL ONE (07:12)
[2020-06-08] MEDS ORDERED: Bupivacaine PF 0.5% 30 ML VIAL ONE (07:12)
[2020-06-08] MEDS ORDERED: EPINEPHrine 1 MG/ML AMP ONE (07:12)
[2020-06-08] MEDS ORDERED: Ondansetron PF 4 MG/2 ML Vial ONE (08:20)
[2020-06-08] MEDS ORDERED: PHENYLEPHRINE-NS 100 MCG/ML 10 ML SYRINGE ONE (08:20)
[2020-06-08] MEDS ORDERED: Glycopyrrolate 0.2 MG/ML 5 ML SYRINGE ONE (08:20)
[2020-06-08] MEDS ORDERED: Lidocaine 1% PF 5 ML VIAL ONE (08:20)
[2020-06-08] MEDS ORDERED: PROPOFOL 200 MG/20 ML VIAL ONE (08:20)
[2020-06-08] MEDS ORDERED: Rocuronium Bromide 10 MG/ML (10ML VIAL) ONE (08:20)
[2020-06-08] MEDS ORDERED: Dexamethasone 20 MG/5 ML VIAL ONE (08:20)
[2020-06-08] MEDS ORDERED: Clindamycin/D5W 900 mg/50 ml Premix Bag ONE (08:30)
[2020-06-08] MEDS ORDERED: Levofloxacin 500 mg/D5W 100 ml Premix Bag ONE (08:30)
[2020-06-08] MEDS ORDERED: HYDROcodone/Acetaminophen 10/325 mg Tablet ONE (12:17)
== END 2020-06-08 13:00 | disposition home or self-care (01) ==
LOC: SDC 05:53
PROVIDERS: ATTEND Neurological Surgery
PROC: 01NB0ZZ Release Lumbar Nerve, Open Approach (ICD-10-PCS; principal; 2020-06-08)
DX: M48.062 Spinal stenosis, lumbar region with neurogenic claudication (principal); J45.909 Unspecified asthma, uncomplicated; M19.90 Unspecified osteoarthritis, unspecified site; M06.9 Rheumatoid arthritis, unspecified; Z79.899 Other long term (current) drug therapy; Z88.0 Allergy status to penicillin; Z88.7 Allergy status to serum and vaccine; Z88.8 Allergy status to other drugs, medicaments and biological substances
CPT/HCPCS: 76000; J0171; J0690; J1100; J1956; J2405; J2704; J3010; J3490; J7620; S0020

== ENCOUNTER 2021-04-15 09:15 | Observation (INO) | payer MEDICARE, OTHER ==
[2021-04-15 12:46] VITALS: BMI 22.4
[2021-04-17] MEDS ORDERED: Thrombin 5000 UNITS/5 ML VIAL ONE (07:36)
[2021-04-17] MEDS ORDERED: EPINEPHrine 1 MG/ML AMP ONE (07:36)
[2021-04-17] MEDS ORDERED: Bupivacaine PF 0.5% 30 ML VIAL ONE (07:36)
[2021-04-17] MEDS ORDERED: Fentanyl 250 MCG/5 ML VIAL ONE ×2 (07:54→11:18)
[2021-04-17] MEDS ORDERED: HYDROmorphone 0.5 MG/0.5 ML SYRINGE ONE (07:55)
[2021-04-17] MEDS ORDERED: SUGAMMADEX SODIUM 200 MG/2 ML VIAL ONE (07:55)
[2021-04-17] MEDS ORDERED: Famotidine/PF 20 mg/2ml Vial ONE (07:55)
[2021-04-17] MEDS ORDERED: Midazolam HCl 2 mg/2 ml Vial ONE (08:02)
[2021-04-17] MEDS ORDERED: Ondansetron PF 4 MG/2 ML Vial ONE (08:19)
[2021-04-17] MEDS ORDERED: Metoclopramide HCl 10 MG/2 ML VIAL ONE (08:19)
[2021-04-17] MEDS ORDERED: Ketorolac Tromethamine 30 MG/ML VIAL ONE (08:19)
[2021-04-17] MEDS ORDERED: Dexamethasone 20 MG/5 ML VIAL ONE (08:19)
[2021-04-17] MEDS ORDERED: PROPOFOL 200 MG/20 ML VIAL ONE (08:19)
[2021-04-17] MEDS ORDERED: Lidocaine 1% PF 5 ML VIAL ONE (08:19)
[2021-04-17] MEDS ORDERED: Rocuronium Bromide 10 MG/ML (10ML VIAL) ONE (08:19)
[2021-04-17] MEDS ORDERED: PHENYLEPHRINE-NS 100 MCG/ML 10 ML SYRINGE ONE (08:19)
[2021-04-17 08:32] LABS: Hemoglobin 11.6 g/dL (12.0-16.0); Mean Corpuscular Hemoglobin 30.1 pg (27.0-31.0); Mean Corpuscular Volume 97.1 fL (78.0-98.0); Platelet Count 298 thou/uL (130-400); RBC Distribution Width 12.5 % (11.5-14.5); Red Blood Cell (RBC) Count 3.85 mill/uL (4.20-5.40); White Blood Cell (WBC) Count 12.9 thou/uL (4.8-10.8)
[2021-04-17] MEDS ORDERED: Promethazine HCl 25 MG/ML VIAL IVPB PRN (10:38)
[2021-04-17] MEDS ORDERED: Ondansetron HCl/PF 4 MG/2 ML Vial IVP PRN (10:38)
[2021-04-17] MEDS ORDERED: Promethazine HCl 25 MG/ML VIAL IM PRN ×2 (10:38→13:07)
[2021-04-17] MEDS ORDERED: HYDROmorphone 2 MG/ML VIAL SLOW IVP PRN (10:38)
[2021-04-17] MEDS ORDERED: HYDROmorphone 2 MG/ML VIAL ONE (11:26)
[2021-04-17] MEDS ORDERED: hydrALAZINE 20 MG/ML VIAL ONE (11:31)
[2021-04-17] MEDS ORDERED: diphenhydrAMINE 25 MG CAP PO PRN ×2 (13:07→16:15)
[2021-04-17] MEDS ORDERED: HYDROmorphone 10 mg/100 ml CADD IVPB PRN (13:07)
[2021-04-17] MEDS ORDERED: Zolpidem Tartrate 5 MG TAB PO PRN (13:07)
[2021-04-17] MEDS ORDERED: diphenhydrAMINE 50 MG/ML VIAL IVP PRN ×2 (13:07→16:15)
[2021-04-17] MEDS ORDERED: Naloxone HCl 0.4 mg/ml Vial IV PRN (13:07)
[2021-04-17] MEDS ORDERED: Ondansetron PF 4 MG/2 ML Vial IVP PRN (13:07)
[2021-04-17] MEDS ORDERED: diphenhydrAMINE 50 MG/ML VIAL IM PRN (13:07)
[2021-04-17] MEDS ORDERED: Communication Order-Pharmacy FS PRN (13:15)
[2021-04-17] MEDS ORDERED: Morphine 4 MG/ML VIAL SLOW IVP PRN ×2 (16:14→16:15)
[2021-04-17] MEDS ORDERED: Acetaminophen 650 MG Suppository PR PRN (16:15)
[2021-04-17] MEDS ORDERED: Acetaminophen 325 MG TAB PO PRN (16:15)
[2021-04-17] MEDS ORDERED: tiZANidine HCl 4 MG TAB PO PRN (16:15)
[2021-04-17] MEDS ORDERED: HYDROcodone/Acetaminophen 10/325 mg Tablet PO PRN ×2 (16:15)
[2021-04-17] MEDS ORDERED: Ondansetron PF 4 MG/2 ML Vial IM PRN (16:16)
[2021-04-17] MEDS ORDERED: SUMAtriptan Succinate 50 MG TAB PO PRN (16:20)
[2021-04-17] MEDS ORDERED: hydrOXYzine 25 MG TAB PO PRN (16:31)
[2021-04-17] MEDS ORDERED: Albuterol Sulfate 1.25 MG/3 ML NEB NEB PRN (16:32)
[2021-04-17] MEDS: Ketorolac Tromethamine 30 MG/ML VIAL IVP SCH ×2 (17:02→23:49)
[2021-04-17] MEDS: Sodium Chloride 0.9% 1,000 ML IV SCH (17:02)
[2021-04-17] MEDS: CEFAZOLIN 2 GM, Admixture Fee 1 EACH in Sodium Chloride 0.9% 100 ML IVPB SCH (17:02)
[2021-04-17] MEDS: Gabapentin 300 MG CAP PO SCH (20:20)
[2021-04-17] MEDS: Hydroxychloroquine Sulfate 200 MG TAB PO SCH (20:22)
[2021-04-17] MEDS ORDERED: Leflunomide 10 mg Tablet PO SCH (21:00)
[2021-04-17] MEDS ORDERED: PARoxetine 20 MG TAB PO SCH (21:00)
[2021-04-17] MEDS ORDERED: TRIAZOLAM 0.25 MG TAB PO SCH (21:00)
[2021-04-18] MEDS: CEFAZOLIN 2 GM, Admixture Fee 1 EACH in Sodium Chloride 0.9% 100 ML IVPB SCH (02:12)
[2021-04-18] MEDS: Sodium Chloride 0.9% 1,000 ML IV SCH (06:28)
[2021-04-18] MEDS: Ketorolac Tromethamine 30 MG/ML VIAL IVP SCH ×2 (06:28→12:13)
[2021-04-18] MEDS ORDERED: Bupropion 150 MG XL TAB PO SCH (09:00)
[2021-04-18] MEDS ORDERED: predniSONE 5 MG TAB PO SCH (09:00)
[2021-04-18] MEDS: Gabapentin 300 MG CAP PO SCH ×2 (09:55→15:03)
[2021-04-18] MEDS: Hydroxychloroquine Sulfate 200 MG TAB PO SCH (09:59)
[2021-04-18] MEDS ORDERED: HYDROcodone/Acetaminophen 10/325 mg Tablet PO PRN (10:00)
[2021-04-18] MEDS: HYDROcodone/Acetaminophen 10/325 mg Tablet PO PRN ×2 (10:43→15:04)
[2021-04-18 16:28] VITALS: BP 149/79; TEMP 98.8
[2021-04-19] MEDS ORDERED: CeleCOXIB 100 MG CAP PO SCH (09:00)
== END 2021-04-18 17:40 | disposition home or self-care (01) ==
LOC: SURG A 04-17 06:52 → INTOOBSV 04-17 06:52 → SURG A 04-17 15:46
PROVIDERS: ADMIT Neurological Surgery; ATTEND Neurological Surgery
PROC: 0QJY0ZZ Inspection of Lower Bone, Open Approach (ICD-10-PCS; principal; 2021-04-17)
PROC: 0SG1071 Fusion of 2 or more Lumbar Vertebral Joints with Autologous Tissue Substitute, Posterior Approach, Posterior Column, Open Approach (ICD-10-PCS; 2021-04-17)
DX: M43.16 Spondylolisthesis, lumbar region (principal); M54.16 Radiculopathy, lumbar region; M48.061 Spinal stenosis, lumbar region without neurogenic claudication; J45.909 Unspecified asthma, uncomplicated; M06.9 Rheumatoid arthritis, unspecified; Z79.52 Long term (current) use of systemic steroids; Z79.899 Other long term (current) drug therapy; Z88.0 Allergy status to penicillin; Z88.4 Allergy status to anesthetic agent; Z88.7 Allergy status to serum and vaccine; Z88.8 Allergy status to other drugs, medicaments and biological substances; Z91.048 Other nonmedicinal substance allergy status; Z98.1 Arthrodesis status
CPT/HCPCS: 20930; 20936; 22612; 22614; 22830; 22842; 76000; 85027; 96374; 96375; 96376 ×2; C1713 ×3; C1768; G0378 ×2; 36415; J0171; J0360; J0690; J1100; J1170; J1885; J2250; J2405; J2704; J2765; J3010; J3490; J7050; J7512; J7620; S0020; S0028

== ENCOUNTER 2021-04-15 09:17 | Outpatient (CLI) | payer MEDICARE, OTHER ==
[2021-04-15 17:30] LABS: SARS-CoV-2 PCR by NAA Not Detected (NotDetected)
== END 2021-04-15 09:18 | disposition home or self-care (01) ==
LOC: LABBT 09:17
PROVIDERS: ATTEND Neurological Surgery
DX: Z01.818 Encounter for other preprocedural examination (principal); M43.16 Spondylolisthesis, lumbar region; Z20.822 Contact with and (suspected) exposure to COVID-19
CPT/HCPCS: 93005; U0003; U0005; 93010